=== PATIENT | male | born 1980 | race African-American/Black ===

== ENCOUNTER 2016-09-13 11:11 | Emergency (ER) ==
[2016-09-13 11:25] VITALS: BP 179/111
[2016-09-13] MEDS ORDERED: NORCO-5 PO ONE (12:13)
--- NOTE | 2016-09-13 12:17 | PROVIDER DOCUMENTATION ---
HPI-Musculoskeletal Pain/Inj <Ana Bellamy - Last Filed: 09/13/16 12:13> - GENERAL Source: patient - HX OF PRESENT ILLNESS-MUSKULOSKELTAL Quality of Pain: reports: aching Severity in ED: moderate Onset/Duration: this morning Timing: still present Any recent injury?: Yes Locality of Occurance: Home Similar Symptoms Previously?: No Recently seen or treated by another doctor?: No <Leny Krishnamurthy - Last Filed: 09/13/16 12:23> - GENERAL Chief Complaint: Extremity Injury Stated Complaint: EXTREMITY INJURY Time Seen by Provider: 09/13/16 12:10 - HX OF PRESENT ILLNESS-MUSKULOSKELTAL Nature of Presenting Problem: Tripped and twisted right ankle inward in the yard this morning reports been limping every since. Reports pain radiates up to knee and into toes. (Leny Kirshnamurthy) Review of Systems - Adult - REVIEW OF SYSTEMS - ADULT Constitutional: denies: chills, fever, fatique Eyes: reports: no symptoms reported Ears, Nose, Mouth & Throat: reports: no symptoms reported Cardiovascular: denies: chest pain, irregular heart rate, orthopnea Respiratory: reports: no symptoms reported Gastrointestinal: reports: no symptoms reported Genitourinary: reports: no symptoms reported Musculoskeletal: reports: see HPI, joint pain. denies: bone pain, back pain, frequent leg cramps, joint swelling, muscle weakness, neck pain Integumentary: reports: no symptoms reported Neurological: reports: no symptoms reported Psychiatric: reports: no symptoms reported Endocrine: reports: no symptoms reported Hematologic/Lymphatic: reports: no symptoms reported Allergic/Immunologic: reports: no symptoms reported All Other Systems: Reviewed and Negative <Leny Krishnamurthy - Last Filed: 09/13/16 12:23> Past History - Adult - PAST MEDICAL HISTORY-ADULT Major Childhood Illnesses: reports: denies history Neurological: reports: Seizures/Epilepsy - PRIOR SURGERIES/PROCEDURES Surgical/Procedure History: reports: none - IMMUNIZATION STATUS Childhood Immunizations: See Nurse Assessment Flu Vaccine: See Nurse Assessment <Ana Bellamy - Last Filed: 09/13/16 12:13> - PAST MEDICAL HISTORY-ADULT Review of Records: reports: Nursing Assessment Review Major Childhood Illnesses: reports: denies history Cardiovascular: reports: denies history Neurological: reports: Seizures/Epilepsy - PRIOR SURGERIES/PROCEDURES Surgical/Procedure History: reports: hernia repair, orthopedic (extremity) - IMMUNIZATION STATUS Childhood Immunizations: See Nurse Assessment Flu Vaccine: See Nurse Assessment - FAMILY HISTORY Family History: reviewed, not pertinent - SOCIAL HISTORY Smoking: denies Substance Use: none/never <Leny Krishnamurthy - Last Filed: 09/13/16 12:23> Physical Exam-Injury Related - Physical Exam-Injury Related Initial Vital Signs Reviewed: Yes General Appearance: appears well, alert, no apparent distress Eyes: PERRL/EOMI, pink conjunctivae Head, Ears, Nose, Mouth & Throat: normocephalic/atraumatic, moist mucous membranes, normal ENT inspection, TMs normal, pharynx normal Neck: non-tender, full range of motion, supple, normal inspection Respiratory: chest non-tender, lungs clear, normal breath sounds, no pleuratic chest pain, no respiratory distress, no accessory muscle use Cardiovascular: normal peripheral pulses, regular rate, rhythm, no edema, no gallop, no JVD, no murmur Abdominal Exam: normal bowel sounds, non tender, soft, no organomegaly, no pulsatile mass Lymphatic: no adenopathy Back Exam: normal inspection, no CVA tenderness, no vertebral tenderness Extremity: normal range of motion, normal gait, normal inspection, no pedal edema, no calf tenderness, normal capillary refill, pelvis stable, tenderness ( mildly tender anterior right ankle lateral malleous). 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, no motor/sensory deficits Psych/Mental Status: AL, normal mood/affect, normal thought content, normal thought process, oriented x 3 <Leny Krishnamurthy - Last Filed: 09/13/16 12:23> Progress <Ana Bellamy - Last Filed: 09/13/16 12:13> - XRAY 1 XRAY: Right XRAY Study: Ankle Impression: Normal XRAY Interpretation: no fx <Leny Krishnamurthy - Last Filed: 09/13/16 12:23> - PLAN OF CARE/RESULTS Progress/Plan/Lab Results: Orders Category Date Time Status Boot, Mid-Calf Walking DIRECTED Care 09/13/16 12:14 Active Stirrup Ankle Splint DIRECTED Care 09/13/16 12:13 Inactive ANKLE COMPLETE RIGHT [RAD] Stat Exams 09/13/16 11:25 Taken Hydrocodone/APAP 5 mg/325 mg [Scott-5] Med 09/13/16 12:13 Discontinued 1 each PO NOW ONE Vital Signs - 24 hr 09/13/16 11:22 Temperature 97.9 F Pulse Rate 68 Respiratory 18 Rate Blood Pressure 179/111 O2 Sat by Pulse 98 Oximetry (Leny Krishnamurthy) Procedures - SPLINTING Right Lower Extremity Other Location: right ankle Pre-Procedure Neurovascular Exam: Intact Pre-Fabricated Splint: Walking Boot (mid calf) Applied By: ED Nurse Assisted By: ED Nurse Post Procedure Neurovascular Exam: Intact <Leny Krishnamurthy - Last Filed: 09/13/16 12:23> Departure - Departure Time of Disposition Order: 12:16 Certified Medical Emergency: Emergent <Ana Bellamy - Last Filed: 09/13/16 12:13> <Leny Krishnamurthy - Last Filed: 09/13/16 12:23> - Departure DIAGNOSIS: Right ankle sprain Qualifiers: Encounter type: initial encounter Involved ligament of ankle: unspecified ligament Qualified Code(s): S93.401A - Sprain of unspecified ligament of right ankle, initial encounter Disposition: HOME 01 Condition: Stable Additional Instructions: Follow up with your primary care physician ED Follow Up Instructions: You have been treated by a care provider in the Emergency Department. These instructions are being provided to you so you can have an understanding of how to care for yourself upon discharge. Upon discharge from the Emergency Department, you are responsible for making arrangements for follow-up care by a physician of your choice. Take all prescribed medications as directed. Return to the Emergency Department immediately for any new or worsening symptoms. You may call the Physician Referral phone number at [phone] to obtain a list of Physicians who are taking new patients. Prescriptions: Cyclobenzaprine [Flexeril] 10 mg PO TID #20 tablet Famotidine [Pepcid] 20 mg PO DAILY #20 tablet Ketorolac [Toradol] 10 mg PO Q6H PRN PRN #20 tablet PRN Reason: Pain Referrals: Stephanie Saldivar MD [STAFF PHYSICIAN] - Ramos Beltran MD [STAFF PHYSICIAN] - None,PCP [Primary Care Provider] - Forms: Return to School/Parent Work Instructions: Famotidine tablets or gelcaps, Cyclobenzaprine tablets, Ankle Sprain, [id number], Ketorolac tablets Attestation - Physician/ Mid-level Attestation Patient care was provided by Mid-level provider (APPLICATION SUPPORT CONSULTANT/PA):: Yes Mid-level provider:: Ana Bellamy Mid-level documentation review:: The Mid-level provider documentation, treatment plan and medical decision making was reviewed by the physician who agrees with all treatment and medical decision making by the MLP. <Ana Bellamy - Last Filed: 09/13/16 12:13> - Scribe Verification/Attestation Scribe:: Leny Krishnamurthy Acting as Scribe for:: Ana Bellamy Scribe documention review:: This chart was documented by a scribe and accurately reflects the service the provider performed and the decisions made by the provider. <Leny Krishnamurthy - Last Filed: 09/13/16 12:23> Physician Attestation
--- NOTE | 2016-09-13 13:00 | Diag Imaging Result Document ---
PROCEDURE NAME: ANKLE COMPLETE RIGHT - 09/13/2016 RIGHT ANKLE, 3 VIEWS: FINDINGS: There is no evidence of fracture or dislocation. No other definite bony abnormalities are present. IMPRESSION: No acute disease.
== END 2016-09-13 13:25 | disposition home or self-care (01) ==
LOC: P.ED 11:11
DX: S93.401A Sprain of unspecified ligament of right ankle, initial encounter (principal); M25.571 Pain in right ankle and joints of right foot; S99.911A Unspecified injury of right ankle, initial encounter; X58.XXXA Exposure to other specified factors, initial encounter
CPT/HCPCS: 99283